=== PATIENT | female | born 1985 | race Caucasian/White ===

== ENCOUNTER 2021-10-26 10:06 | Outpatient (RCR) | payer OTHER, SELFPAY ==
[2021-10-26 14:09] VITALS: BP 101/72; PULSE 92; RESP 18; TEMP 36.3; O2SAT 100
[2021-10-26] MEDS: ACETAMINOPHEN 325 MG TABLET 650 MG PO (14:12)
[2021-10-26] MEDS: FAMOTIDINE 20 MG TABLET PO (14:13)
[2021-10-26] MEDS: diphenhydrAMINE HCl CAP 25 MG CAPSULE PO (14:13)
[2021-10-26 15:50] VITALS: BP 106/69; PULSE 84; O2SAT 100
[2021-10-26] MEDS: HEPARIN SODIUM LOCK FLUSH 500 UNITS/5 ML SYRINGE IV PUSH (15:52)
== END 2021-10-26 17:00 ==
LOC: AMCINF 10:06
PROVIDERS: PCP Internal Medicine; Visit Provider Internal Medicine Hematology & Oncology
DX: U07.1 COVID-19 (principal); I25.10 Atherosclerotic heart disease of native coronary artery without angina pectoris; D84.9 Immunodeficiency, unspecified
CPT/HCPCS: A9270; M0247; Q0247